=== PATIENT | male | born 1995 ===

== ENCOUNTER 2017-03-20 12:34 | Emergency (ER) | payer MEDICAID, OTHER ==
--- NOTE | 2017-03-20 13:20 | ED PDOC ---
Arrival/HPI - General Time Seen by Provider: 03/20/17 13:13 Historian: Patient - History of Present Illness Narrative History of Present Illness (Text): 03/20/17 13:15 Don Umaña is a 21 year old male, whose past medical history includes bipolar disorder, who presents to the emergency department complaining of a laceration on his right 3rd digit hand. Patient denies any fever, nausea, dizziness, shortness of breath, chest pain, or other complaints. He reports he was picking up a sheet rock knife when he tripped and injured his finger against the wall. Patient is unsure if his Tetanus shot is up to date. Time/Duration: Prior to Arrival Symptom Onset: Sudden Symptom Course: Unchanged Past Medical History - Provider Review Nursing Documentation Reviewed: Yes Family/Social History - Physician Review Nursing Documentation Reviewed: Yes Family/Social History: Unknown Family HX Allergies/Home Meds Allergies/Adverse Reactions: Allergies No Known Allergies Allergy (Verified 03/20/17 13:17) Review of Systems - Review of Systems Constitutional: absent: Fevers Respiratory: absent: SOB Cardiovascular: absent: Chest Pain Gastrointestinal: absent: Abdominal Pain Genitourinary Male: absent: Dysuria Musculoskeletal: Other (3rd digit on right hand laceration). absent: Back Pain Skin: absent: Rash Neurological: absent: Headache, Dizziness Hemo/Lymphatic: absent: Adenopathy Psychiatric: absent: Anxiety Physical Exam Vital Signs Reviewed: Yes Vital Signs Temp Pulse Resp BP Pulse Ox 03/20/17 13:49 98.3 F 87 16 114/87 99 Temperature: Afebrile Blood Pressure: Normal Pulse: Regular Respiratory Rate: Normal Appearance: Positive for: Well-Appearing, Non-Toxic, Comfortable Pain Distress: None Mental Status: Positive for: Alert and Oriented X 3 - Systems Exam Head: Present: Atraumatic, Normocephalic Pupils: Present: PERRL Extroacular Muscles: Present: EOMI Conjunctiva: Present: Normal Mouth: Present: Moist Mucous Membranes Nose (External): Present: Atraumatic Neck: Present: Normal Range of Motion Respiratory/Chest: Present: Clear to Auscultation, Good Air Exchange. No: Respiratory Distress, Accessory Muscle Use Cardiovascular: Present: Regular Rate and Rhythm, Normal S1, S2. No: Murmurs Abdomen: Present: Normal Bowel Sounds. No: Tenderness, Distention, Peritoneal Signs Back: Present: Normal Inspection Upper Extremity: Present: Normal Inspection, Normal ROM, NORMAL PULSES, Neurovascularly Intact, Capillary Refill < 2s, Other (2cm laceration on right 3rd digit ). No: Cyanosis, Edema Lower Extremity: Present: Normal Inspection. No: Edema Neurological: Present: GCS=15, CN II-XII Intact, Speech Normal Skin: Present: Warm, Dry, Normal Color. No: Rashes Psychiatric: Present: Alert, Oriented x 3, Normal Insight, Normal Concentration Medical Decision Making ED Course and Treatment: 03/20/17 Impression: 21 year old male with 2cm laceration on 3rd digit of right hand Plan: -- Motrin -- Lidocaine -- Right hand x-ray -- Reassess and disposition Progress Notes: 03/20/17 Laceration repair information can be found on procedure note. There was no evidence of tendon injury. Patient has full strength and ROM of finger and all of his right hand. Patient tolerated procedure well. Xray shows no fracture and no foreign body. Finger was placed in a finger splint by EMT Ray. Patient will be discharged on Keflex and will follow up with his primary care doctor. He was advised to return to the ED if symptoms worsen, redness, swelling, pus drainage or any other concern. 03/20/17 14:55 - RAD Interpretation Radiology Orders: 03/20/17 13:27 HAND RIGHT 3 VIEWS [RAD] Stat Shot Blaster: Radiologist - Medication Orders Current Medication Orders: Discontinued Medications Cephalexin Monohydrate (Keflex) 500 mg PO STAT STA PRN Reason: Protocol Stop: 03/20/17 14:19 Ibuprofen (Motrin Tab) 600 mg PO STAT STA Stop: 03/20/17 13:29 Last Admin: 03/20/17 14:16 Dose: 600 mg MAR Pain/Vitals Document 03/20/17 14:16 WILBER (Rec: 03/20/17 14:17 WILBER [facility] [id number][place] Pain Reassessment Is This A Pain ReAssessment? Yes Presence of Pain Presence of Pain Yes Pain Scale Used Pain Scale Used Numeric Location Left, Right or Bilateral Right Pain Location Body Site R 3RD FINGER Description Sharp Intensity 8 Scale Used Numeric Lidocaine HCl (Lidocaine 2% 20ml Vial) 0 ml SC ONCE STA Stop: 03/20/17 13:29 Tetanus/Reduced Diphtheria/Acell Pertussis (Boostrix Vaccine Inj) 0.5 ml IM .ONCE ONE Stop: 03/20/17 13:29 Last Admin: 03/20/17 14:17 Dose: 0.5 ml - Procedure PROCEDURE NOTE (Text): 03/20/17 14:22 PROCEDURE: LACERATION REPAIR Performed by the emergency provider Dr. Leon Garcia Location: 3rd digit on right hand Length: 2 cm Description: clean wound edges, no foreign bodies Distal CMS: Normal. No deficits. Neurovascularly intact. Anesthesia: Lidocaine 1% Preparation: The wound was cleaned with 1 NS ands some Betadyne at high pressure. The area was prepped and draped in the usual sterile fashion. Exploration: The wound was explored and no foreign bodies were found. Procedure: The wound was closed with 5 interrupted 4-0 nylon sutures. - Scribe Statement The provider has reviewed the documentation as recorded by the Izzyibe Delmi Keller Provider Scribe Attestation: All medical record entries made by the Scribe were at my direction and personally dictated by me. I have reviewed the chart and agree that the record accurately reflects my personal performance of the history, physical exam, medical decision making, and the department course for this patient. I have also personally directed, reviewed, and agree with the discharge instructions and disposition. Disposition/Present on Arrival - Present on Arrival Any Indicators Present on Arrival: No - Disposition Have Diagnosis and Disposition been Completed?: Yes Diagnosis: Finger laceration Disposition: HOME/ ROUTINE Disposition Time: 14:31 Patient Plan: Discharge Patient Problems: Current Active Problems Problem Status Onset Finger laceration Acute Condition: IMPROVED Discharge Instructions (ExitCare): Finger Laceration (ED) Additional Instructions: Mr Umaña, thank you for letting us take care of you today. Your provider was Dr. Matthews You were treated for Finger Laceration The emergency medical care you received today was directed at your acute symptoms. If you were prescribed any medication, please fill it and take as directed. It may take several days for your symptoms to resolve. Return to the Emergency Department if your symptoms worsen, do not improve, or if you have any other problems. YOU NEED SUTURE REMOVAL IN 7-10 DAYS. Return to the ED if you develop pus, swelling, redness or any other concern. Please contact your doctor or call one of the physicians/clinics you have been referred to that are listed on the Patient Visit Information form that is included in your discharge packet. Bring any paperwork you were given at discharge with you along with any medications you are taking to your follow up visit. Our treatment cannot replace ongoing medical care by a primary care provider (PCP) outside of the emergency department. Thank you for allowing the [facility] team to be part of your care today. If you had an X-Ray or CT scan: A Radiologist will review the ED reading if any change in treatment is needed we will contact you. If you had a blood, urine, or wound culture: It will take several days for the results, if any change in treatment is needed we will contact you. If you had an STI test: It will take 48 hours for the results. Please call after 1 week if you have not heard back. Prescriptions: Cephalexin [Keflex] 500 mg PO TID #20 capsule Referrals: PCP,NO [Primary Care Provider] - Follow up with primary Forms: [employer] ([place]), WORK NOTE
[2017-03-20] MEDS ORDERED: Lidocaine 2% Inj (20ml) SC STA (13:28)
[2017-03-20] MEDS ORDERED: TDAP Vaccine 0.5 mL Syr IM ONE (13:28)
[2017-03-20 13:50] VITALS: BP 114/87; PULSE 87; RESP 16; TEMP 98.3; O2SAT 99
--- NOTE | 2017-03-20 15:35 | RAD ---
PROCEDURE: Right Hand Radiographs. HISTORY: middle finger laceration COMPARISON: None. FINDINGS: BONES: Normal. No fracture. JOINTS: Normal. No osteoarthritic changes. SOFT TISSUES: Normal. No visulaized radiopaque/visualized foreign body. OTHER FINDINGS: None. IMPRESSION: Normal right hand radiographs.
== END 2017-03-20 14:35 | disposition home or self-care (01) ==
LOC: ED 12:34
DX: S61.212A Laceration without foreign body of right middle finger without damage to nail, initial encounter (principal); W26.0XXA Contact with knife, initial encounter; Y92.89 Other specified places as the place of occurrence of the external cause; Z23 Encounter for immunization